=== PATIENT | female | born 1955 | race Caucasian/White ===

== ENCOUNTER 2019-03-28 10:34 | Emergency (ER) | payer BC, SELFPAY ==
[2019-03-28 10:40] VITALS: BP 165/85; PULSE 57; RESP 18; TEMP 36.5; O2SAT 100
--- NOTE | 2019-03-28 10:40 | ED.GENADUL_ITS ---
Discharge Plan Disposition Patient Disposition: HOME Condition: Fair Discharge Details Chief Complaint: Cellulitis Clinical Impression: Cellulitis of hand Primary Care Provider: Frieda Graves ED Provider: Adela Rivas Home Meds and New Rx's Prescriptions: New cephalexin [Keflex] 500 mg capsule 500 mg PO QID Qty: 20 RF: 0 No Action levothyroxine [Synthroid] 50 mcg Tablet 50 mcg PO DAILY RF: 0 Discharge Instructions Instructions: Cellulitis (ED) Additional Instructions: Encourage elevation of your hand. Tylenol and/or Motrin as needed for discomfort. Please take Keflex as prescribed. Even if symptoms improve, please take entire course. Please follow up with primary care at the end of the week if symptoms are not completely resolved. If you develop fevers/chills, increased pain, spreading of the redness or other new/worsening symptoms please seek care urgently once again. Discharge Data Discharge Date/Time-TO BE ENTERED AT DEPARTURE: 03/28/19 11:01 Medical Decision Making Patient 63-year-old [id number] female presents today with chief complaint of bite or sting to the dorsum of the right hand with associated erythema. She reports that this occurred yesterday but since that time she has noted increased swelling and erythema. On exam, the dorsum of the hand extending up to the bones of the wrist is erythematous and warm. This does spare the fingers. Patient is afebrile and nontoxic-appearing. I do not appreciate any opening or wound in the skin. Concern for developing cellulitis. Plan to treat with Keflex. I encouraged elevation. Tylenol and ibuprofen as needed for discomfort. She was given strict return precautions. All her questions and concerns were addressed and she is in agreement this plan. Advise follow-up with primary care if not completely resolved in the week. HPI General Mode of arrival: ambulatory . Date/Time Provider Initiated Documentation: 03/28/19 10:39 . Limitations to Documentation: no limitations . Information obtained by: patient and RN notes reviewed . HPI Narrative: Patient is 63-year-old [id number]-cfovviuz female presents today with chief complaint of erythema and swelling to the posterior aspect of her right hand. She reports that yesterday, she was in her garden when she was bit or stung by an insect. Believes that it was a blood warm. States that initially she had a small area of irritation around the area of stating that since that time it has spread to include the entirety of the dorsum of the hand and spreading up the ulnar side of the wrist. She denies any fevers or chills. Denies any known trauma. Relat ed Data Home Medications Medication Instructions Recorded Confirmed cephalexin [Keflex] 500 mg PO QID #20 cap 03/28/19 levothyroxine [Synthroid] 50 mcg PO DAILY 03/28/19 03/28/19 Previous Rx's Medication Instructions Recorded cephalexin [Keflex] 500 mg PO QID #20 cap 03/28/19 Allergies Allergy/AdvReac Type Severity Reaction Status Date / Time No Known Allergies Allergy Unverified 03/28/19 10:52 Review of Systems Constitutional Reports as per HPI, Denies chills, Denies fever(s), Denies headache(s) and Denie s weakness ENT Denies headache(s) Cardiovascular Reports as per HPI Respiratory Reports as per HPI and Denies cough Musculoskeletal Reports as per HPI and Denies tingling Integumentary/Breasts Reports as per HPI, Reports erythema, Reports skin pain, Reports skin swelling and Denies wounds Neurologic Reports as per HPI, Denies headache(s), Denies tingling, Denies paresthesias and Denies weakness [facility] Medical History History of spleen injury (Acute) Hypoactive thyroid (Chronic) Social History Smoking/Tobacco Use Status: Never Alcohol Intake: current Alcohol Intake frequency: a few times a week Substance use type: does not use Do you feel safe at home: Yes Do you feel safe in your relationship?: Yes Exam Const General: cooperative, healthy appearing, comfortable, no acute distress, well developed and well groomed Nutritional Appearance: average body habitus and well nourished Orientation: alert and awake Resp Effort & Inspection: normal respiratory effort, able to speak in complete sentences and no respiratory distress Cardio Rate: regular rate Rhythm: regular rhythm Skin General skin exam: no ecchymosis, erythema (Dorsum of right hand from the base of digits to wrist), no excoriation(s), no fluctuance and no induration Trauma: no lacerations or abrasions Wounds: no wounds Neuro General: alert and awake Cognition: normal cognition Speech: speech normal Gait: normal gait Motor: muscle tone normal throughout Sensory Exam: no sensory deficits noted Extrem Right upper extremity: full ROM, normal capillary refill, no joint enlargement, elbow/forearm Details: normal to inspection; no tenderness and no swelling, wrist Details: normal ROM and radial pulse present; inspection abnormal (Erythema along the ulnar side), no tenderness, no swelling, no unusual warmth, no lacerations and no crepitus and hand Details: normal capillary refill, neuromotor exam normal, neurosensory exam normal, tendon exam normal, tenderness Location: of the dorsal hand (Diffuse), vascular exam Details: radial pulse present and normal capillary refill, normal ROM of fingers, warmth Location: of the dorsal hand and swelling Location: of the dorsal hand; abnormal to inspection (Erythema to the dorsal aspect of hand as above), no abrasions, no lacerations, no ecchymosis, no crepitus and no puncture wound; abnormal to inspection (Erythema as described above) Psych Appearance: grossly normal and well kempt Mental Status: mental status grossly normal Speech and Movement: speech and movement normal
== END 2019-03-28 11:01 | disposition home or self-care (01) ==
LOC: ER 11:01
PROVIDERS: Emergency Provider Physician Assistant; PCP Internal Medicine
DX: L03.113 Cellulitis of right upper limb (principal)
CPT/HCPCS: 99283